=== PATIENT | male | born 1940 | race Caucasian/White ===

== ENCOUNTER 2024-01-25 01:01 | Outpatient (CLI) | payer MEDICARE, SELFPAY ==
--- NOTE | 2024-01-25 12:20 | DI.US_ITS ---
Exam(s) US NEEDLE LOCAL OTHER WO RAD EXAM: TR 5 right sided thyroid nodule,ULTRASOUND GUIDED BX,E04.1 COMPARISON: No exams were available for comparison TECHNIQUE: Ultrasound performed using standard protocol. FINDINGS: Sonography was provided for Dr. Julian during the performance of a thyroid nodule biopsy. Please re kumar to the procedure report for complete details. DATA REPOSITORY:
--- NOTE | 2024-01-25 12:30 | PAPNONF_PTH ---
PATIENT: Walt Kimbrough LOC: [facility] U#:[id number] AGE/SX: 84/M ROOM: RE01/25/[address]: Oliver Julian MD : [id number] BED: DIS: 01/25/2024 SPEC #: [id number] RECD: 01/25/24 13:04 STATUS: ALEJANDRAElian REQ #: [id number] AYAZ: 01/25/24 12:[address]: Oliver Julian DEPT: [facility] Cytology RECD BY: Teresa Dweyr ENTERED: 01/25/24 13:04 SP TYPE: PORTER GL[facility] DR: Elvira Eddy Tissues: 1 - BODY FLUID CYTO-FINE NEEDLE [facility] Procedures: BODY FLUID CYTO-FINE NEEDLE [facility]IR[facility] Comments: [id number] (PATH FNA CONSULT) (REFRIGERATED)
--- NOTE | 2024-01-25 13:22 | W.PROCNOTE ---
Date of service: 01/25/24 Time of Service: :22 Procedure Note Date of procedure: 01/25/24 Procedure: Ultrasound-guided FNA, right thyroid nodule, pathology present Surgeon/Proceduralist/Physician: Oliver Julian Procedure Diagnosis: Right thyroid nodule, TR 5, meeting criteria for biopsy Procedure Indications: The patient has a right sided thyroid nodule meeting criteria for biopsy. Options were explained the patient regarding further management. He elected to undergo the above procedure. Consent was filled out and signed prior to surgery. It was verified that he had discontinued his Eliquis 3 days ago. The below was then performed. Procedure Description: The patient was positioned in supine position with his neck slightly extended. He was prepped and draped in appropriate fashion and ultrasound used to localize the thyroid nodule of concern on the right. Following this, 1% lidocaine with 1/100,000 epinephrine was injected in the skin and subcutaneous tissues overlying the medial aspect of the thyroid nodule and then a 25-gauge needle passed into the thyroid nodule. 3 passes were necessary to achieve cellular adequacy. Once this been accomplished, 2 additional passes were made for potential Afirma testing. After ensuring adequate hemostasis, sterile dressing was applied. The patient was then allowed to sit, stand, and then ambulate afterwards which he did without difficulty. His vital signs remained stable. He will remove the bandage tonight and not replace it. He will avoid anything strenuous today and will resume his Eliquis tonight. He will call with any signs of swelling or infection. He will call if he does not hear from me within 1 week with regard to pathology. He may use Tylenol for discomfort. He had no further questions. He is comfortable with this plan.
== END 2024-01-25 01:21 ==
PROVIDERS: PCP Nurse Practitioner Family; Visit Provider Otolaryngology
DX: E04.1 Nontoxic single thyroid nodule (principal)
CPT/HCPCS: 10005; 76942; 88104

== ENCOUNTER 2025-01-31 01:08 | Outpatient (CLI) | payer MEDICARE, SELFPAY ==
--- NOTE | 2025-01-31 07:30 | DI.US_ITS ---
Exam(s) US THYROID EXAM: US THYROID CLINICAL HISTORY: Thyroid nodule, benign biopsy assess for change E04.1. TECHNIQUE: Ultrasound thyroid performed using standard protocol. COMPARISON: US US NEEDLE LOCAL OTHER WO RAD from 01/25/2024 FINDINGS: There is a single solid nodule which is in the right thyroid lobe. RIGHT THYROID LOBE: Measures 1.8 cm AP x 1.8 cm wide x 5.3 cm craniocaudal The solid nodule in the right lobe measures 1.9 x 1.2 x 1.4 cm Grading is as follows: Composition: Solid-2 points Echogenicity: Hypoechoic-2 points Shape: Wider than taller-0 points Margin: Smooth- 0 points Echogenic Foci: Contains punctate echogenic foci-3 points Total Points for this nodule: 7 ACR Ti-Rads Category: TR5 This TR 5 level nodule requires ultrasound-guided FNA as it measures greater than 1 cm. ISTHMUS: Normal thickness. There are no nodules in the isthmus. LEFT THYROID LOBE: Measures 1.9 cm AP x 1.4 wide x 5.0 cm craniocaudal There are no solid nodules in the left lobe. LYMPH NODES: There is no significant adenopathy. IMPRESSION: There is a solitary 19 x 12 x 14 mm solid TR 5 level suspicious nodule in the right thyroid lobe which requires ultrasound-guided FNA. No significant lymphadenopathy. DATA REPOSITORY:
== END 2025-01-31 01:28 ==
LOC: DI 01:08
PROVIDERS: PCP Nurse Practitioner Family; Visit Provider Otolaryngology
DX: E04.1 Nontoxic single thyroid nodule (principal)
CPT/HCPCS: 76536